=== PATIENT | female | born 1960 | race Caucasian/White ===

== ENCOUNTER 2016-08-18 08:51 | Day surgery (SDC) | payer OTHER ==
[2016-08-15 13:11] VITALS: BMI 25.0
[~2016-08-18 08:51] MED LIST: LEVOFLOXACIN 500 MG PREMIX BAG IVPB ONE
[2016-08-18] MEDS ORDERED: LEVOFLOXACIN 500 MG IVPB 100 ML IVPB ONE (11:08)
[2016-08-18] MEDS ORDERED: oxyCODONE HCL 5 MG TABLET PO PRN (11:12)
[2016-08-18] MEDS ORDERED: PROMETHAZINE HCL 25 MG/1 ML VIAL IVPUSH PRN (11:12)
[2016-08-18] MEDS ORDERED: ONDANSETRON 4 MG/2 ML VIAL IVPUSH PRN (11:12)
[2016-08-18] MEDS ORDERED: LACTATED RINGERS SOLUTION 1,000 ML IV SCH (11:15)
[2016-08-18] MEDS ORDERED: MEROPENEM 1 GM in DEXTROSE 5%-WATER - 250 ML IVPB ONE (12:00)
[2016-08-18] MEDS ORDERED: MIDAZOLAM HCL 2 MG/2 ML SINGLE DOSE VIAL ONE (12:05)
[2016-08-18] MEDS ORDERED: LIDOCAINE HCL/PF 2% SDV 5ML VIAL ONE (12:22)
[2016-08-18] MEDS ORDERED: PROPOFOL 20 ML ONE (12:22)
[2016-08-18] MEDS ORDERED: MEROPENEM 1 GM VIAL (RESTRICTED TO ID) IVPB ONE (12:24)
--- NOTE | 2016-08-18 13:24 | OP ---
Operative Note - Note: Operative Date: 08/18/16 Pre-Operative Diagnosis: right renal stones Operation: right eswl Findings: 20mm mid and 10mm upper right kidney stones Post-Operative Diagnosis: Same as Pre-op Surgeon: Vladimir Ayala Anesthesia: General Operative Report Dictated: Yes
[2016-08-18 13:36] VITALS: TEMP 97.8
[2016-08-18 15:57] VITALS: BP 114/78; PULSE 85
--- NOTE | 2016-08-19 15:28 | OP ---
DATE OF OPERATION: 08/18/2016 PREOPERATIVE DIAGNOSIS: Right renal stone. POSTOPERATIVE DIAGNOSIS: Right renal stone. PROCEDURE: Right extracorporeal shock-wave lithotripsy. ATTENDING: Louis Ryenoso MD ANESTHESIA: General. OPERATION: The patient was brought in the operating room, placed in supine position on the operating room table. The patient was given antibiotics as suggested by infectious disease for surgical prophylaxis. The patient was placed in supine position on the operating table. Ultrasonography and fluoroscopy showed a 2-cm midpole stone and 1-cm upper pole stone. In addition, there was a large lower pole stone which was not involved in today's procedure. The patient's midpole and upper pole stone were subjected to extracorporeal shock-wave lithotripsy. The patient was given general anesthesia and once general anesthesia had been administered, 3000 impulses at 20 joules of power was administered to the mid and upper pole stones, with excellent fragmentation on pre and postoperative observation by fluoroscopy and ultrasonography. The patient tolerated the procedure very well. The disposition of the patient was to recovery room. LOUIS REYNOSO M.D. [id number]
== END 2016-08-18 15:40 | disposition home or self-care (01) ==
LOC: JASU-SURG 08:51
PROVIDERS: ATTEND Urology
PROC: 0TF3XZZ Fragmentation in Right Kidney Pelvis, External Approach (ICD-10-PCS; principal; 2016-08-18 11:00)
DX: N20.0 Calculus of kidney (principal)
CPT/HCPCS: 94760

== ENCOUNTER 2017-12-01 13:17 | Observation (INO) | payer OTHER ==
--- NOTE | 2017-12-01 14:28 | PDOC ---
Rapid Medical Evaluation Chief Complaint: Blood Pressure Problem Time Seen by Provider: 12/01/17 14:21 Medical Evaluation: Allergies Allergy/AdvReac Type Severity Reaction Status Date / Time Penicillins Allergy Verified 12/01/17 13:21 Vital Signs Temp Pulse Resp BP Pulse Ox 98.0 F 72 18 163/108 100 12/01/17 13:23 12/01/17 13:23 12/01/17 13:23 12/01/17 13:23 12/01/17 13:23 12/01/17 14:24 Pt. sent from her [employer] for elevated blood pressure (Dr. Rosenthal). Pt. also c/o R sided back pain, R arm pain and headache Exam: Ambulatory in no acute distress. Breathing easily. CTAB, RRR. BP 169/86 Orders: Labs, EKG, CXR Pt. to proceed to main ed for further evaluation. Discharge Disposition - Referrals Referrals: Dontrell Lassiter MD [Primary Care Provider] - - Patient Instructions - Post Discharge Activity
[2017-12-01 15:24] LABS: BASO % 0.5 % (0-2.0); HEMATOCRIT 41.5 % (32.4-45.2); HEMOGLOBIN 13.6 GM/dL (10.7-15.3); LYMPH % 26.8 % (8-40); MCHC 32.7 g/dl (32.0-36.0); MEAN CELL VOLUME 82.5 fl (80-96); MEAN PLT VOLUME 9.3 fl (7.5-11.1); MONO % 6.4 % (3.8-10.2); NEUT % 65.3 % (42.8-82.8); PLATELET COUNT 210 K/MM3 (134-434); RBC 5.04 M/mm3 (3.60-5.2); RDW 15.8 % (11.6-15.6); WHITE BLOOD COUNT 7.3 K/mm3 (4.0-10.0)
[2017-12-01 15:28] LABS: INR 0.96 (0.82-1.09); PROTHROMBIN TIME (PATIENT) 10.9 SEC (9.7-13.0)
[2017-12-01 15:42] LABS: URINE APPEARANCE CLEAR; URINE BILIRUBIN NEGATIVE (<2.0 mg/dL); URINE COLOR STRAW; URINE GLUCOSE (UA) NEGATIVE (NEGATIVE); URINE KETONE NEGATIVE (NEGATIVE); URINE NITRITE POSITIVE (NEGATIVE); URINE PROTEIN NEGATIVE (NEGATIVE); URINE UROBILINOGEN NEGATIVE mg/dL (0.2-1.0)
[2017-12-01 15:43] LABS: URINE LEUK ESTERASE 3+ (NEGATIVE)
[2017-12-01 15:46] LABS: URINE BACTERIA FEW /hpf (NONE SEEN); URINE MUCUS RARE
[2017-12-01 15:54] LABS: ALBUMIN 4.1 g/dl (3.4-5.0); ANION GAP 7 (8-16); BILIRUBIN,TOTAL 0.4 mg/dL (0.2-1.0); BLOOD UREA NITROGEN 16 mg/dL (7-18); CHLORIDE 108 mmol/L (98-107); CO2 27 mmol/L (21-32); CREATININE 0.8 mg/dL (0.55-1.02); GLUCOSE,RANDOM 85 mg/dL (74-106); POTASSIUM 4.2 mmol/L (3.5-5.1); SGOT/AST 18 U/L (15-37); SGPT/ALT 26 U/L (12-78); SODIUM 142 mmol/L (136-145); TOT PROT 7.8 g/dl (6.4-8.2)
[2017-12-01 15:55] LABS: ALK PHOS 94 U/L (45-117)
--- NOTE | 2017-12-01 16:02 | PDOC ---
History of Present Illness - General Chief Complaint: Blood Pressure Problem Stated Complaint: HEAD PRESSURE Time Seen by Provider: 12/01/17 14:21 - History of Present Illness Initial Comments: 12/01/17 16:33 Ms. Webster is a 57 yo female w/ pmh of HTN who presents from [employer] office after she was noted to be hypertensive in office. Patient further complains of a 3 hour history of 10/10 headache. She reports it was indolent in nature however has progressed across her entire forehead and radiates down her right neck. Denies any other associated symptoms. The patient denies chest pain, shortness of breath, and dizziness. Denies fever , chills, nausea, vomit, diarrhea and constipation. Denies dysuria, frequency, urgency and hematuria. Allergies: Penicillin Past History - Past Medical History Allergies/Adverse Reactions: Allergies Allergy/AdvReac Type Severity Reaction Status Date / Time Penicillins Allergy Verified 12/01/17 13:21 Home Medications: Ambulatory Orders Cephalexin [Keflex] 500 mg PO BID #14 capsule 10/16/17 Ibuprofen 600 mg PO ACDIN #30 tablet 10/16/17 Anemia: No Asthma: No Cancer: No Cardiac Disorders: No COPD: No CHF: No DVT: No Dementia: No Diabetes: Yes (BODERLINE DIABETES) GI Disorders: No Disorders: No HTN: No Hypercholesterolemia: Yes Kidney Stones: Yes Liver Disease: No Seizures: No Thyroid Disease: No - Immunization History Td Vaccination: Yes TDAP Vaccination: Yes Immunization Up to Date: No - Suicide/Smoking/Psychosocial Hx Smoking History: Never smoked Have you smoked in the past 12 months: No Information on smoking cessation initiated: No Hx Alcohol Use: No Drug/Substance Use Hx: No Substance Use Type: None Review of Systems - Review of Systems Comments:: 12/01/17 16:35 GENERAL/CONSTITUTIONAL: No fever or chills. No weakness. HEAD, EYES, EARS, NOSE AND THROAT: No change in vision. No ear pain or discharge. No sore throat. CARDIOVASCULAR: No chest pain or shortness of breath RESPIRATORY: No cough, wheezing, or hemoptysis. GASTROINTESTINAL: No nausea, vomiting, diarrhea or constipation. GENITOURINARY: No dysuria, frequency, or change in urination. MUSCULOSKELETAL: No joint or muscle swelling or pain. No neck or back pain. SKIN: No rash NEUROLOGIC: +Headache as described. No vertigo, loss of consciousness, or change in strength/sensation. ENDOCRINE: No increased thirst. No abnormal weight change HEMATOLOGIC/LYMPHATIC: No anemia, easy bleeding, or history of blood clots. ALLERGIC/IMMUNOLOGIC: No hives or skin allergy. *Physical Exam - Vital Signs Last Vital Signs Temp Pulse Resp BP Pulse Ox 98.0 F 72 18 168/86 100 12/01/17 13:23 12/01/17 13:23 12/01/17 13:23 12/01/17 14:25 12/01/17 13:23 - Physical Exam Comments: 12/01/17 16:35 GENERAL: Awake, alert, and fully oriented, in no acute distress HEAD: No signs of trauma, normocephalic, atraumatic EYES: PERRLA, EOMI, sclera anicteric, conjunctiva clear ENT: Auricles normal inspection, hearing grossly normal, nares patent, oropharynx clear without exudates. Moist mucosa NECK: Normal ROM, supple, no lymphadenopathy, JVD, or masses LUNGS: No distress, speaks full sentences, clear to auscultation bilaterally HEART: Regular rate and rhythm, normal S1 and S2, no murmurs, rubs or gallops, peripheral pulses normal and equal bilaterally. ABDOMEN: Soft, nontender, normoactive bowel sounds. No guarding, no rebound. No masses EXTREMITIES: Normal inspection, Normal range of motion, no edema. No clubbing or cyanosis. NEUROLOGICAL: Cranial nerves II through XII grossly intact. Normal speech, normal gait, no focal sensorimotor deficits SKIN: Warm, Dry, normal turgor, no rashes or lesions noted. ED Treatment Course - LABORATORY CBC & Chemistry Diagram: 12/01/17 15:01 12/01/17 15:01 - ADDITIONAL ORDERS Additional order review: Laboratory Results 12/01/17 12/01/17 12/01/17 15:21 15:01 15:01 PT with INR INR Sodium 142 Potassium 4.2 Chloride 108 H Carbon Dioxide 27 Anion Gap 7 L BUN 16 Creatinine 0.8 Creat Clearance w eGFR > 60 Random Glucose 85 Calcium 9.0 Total Bilirubin 0.4 AST 18 ALT 26 Alkaline Phosphatase 94 Creatine Kinase 101 Troponin I < 0.02 Total Protein 7.8 Albumin 4.1 Urine Color Straw Urine Appearance Clear Urine pH 7.0 Ur Specific [place] 1.009 Urine Protein Negative Urine Glucose (UA) Negative Urine Ketones Negative Urine Blood Negative Urine Nitrite Positive Urine Bilirubin Negative Urine Urobilinogen Negative Ur Leukocyte Esterase 3+ H Urine WBC (Auto) 25 Urine RBC (Auto) 1 Urine Bacteria Few Urine Mucus Rare 12/01/17 15:01 PT with INR 10.90 INR 0.96 Sodium Potassium Chloride Carbon Dioxide Anion Gap BUN Creatinine Creat Clearance w eGFR Random Glucose Calcium Total Bilirubin AST ALT Alkaline Phosphatase Creatine Kinase Troponin I Total Protein Albumin Urine Color Urine Appearance Urine pH Ur Specific [place] Urine Protein Urine Glucose (UA) Urine Ketones Urine Blood Urine Nitrite Urine Bilirubin Urine Urobilinogen Ur Leukocyte Esterase Urine WBC (Auto) Urine RBC (Auto) Urine Bacteria Urine Mucus 12/01/17 15:01 RBC 5.04 MCV 82.5 MCHC 32.7 RDW 15.8 H MPV 9.3 Neutrophils % 65.3 Lymphocytes % 26.8 Monocytes % 6.4 Eosinophils % 1.0 Basophils % 0.5 Medical Decision Making - Medical Decision Making 12/01/17 19:02 Ms. Webster is a 57 yo female w/ pmh as described. Workup started for severe headache with CTA for r/o carotid dissection and head ct for r/o bleed. Patient had severe reaction of hives to IV contrast requiring benadryl. Patient also noted to have multiple hypodensities on head CT. Fluids / reglan given for control of headache. Labs significant for UTI as below - macrobid oral treatment started. Inpatient team paged for admission. 12/01/17 19:33 Patient signed out to Dr. Bardales for further evaluation. Laboratory Results - last 24 hr 12/01/17 12/01/17 12/01/17 15:01 15:01 15:01 WBC 7.3 RBC 5.04 Hgb 13.6 Hct 41.5 MCV 82.5 MCH 27.0 MCHC 32.7 RDW 15.8 H Plt Count 210 MPV 9.3 Neutrophils % 65.3 Lymphocytes % 26.8 Monocytes % 6.4 Eosinophils % 1.0 Basophils % 0.5 Nucleated RBC % 0 PT with INR 10.90 INR 0.96 Sodium 142 Potassium 4.2 Chloride 108 H Carbon Dioxide 27 Anion Gap 7 L BUN 16 Creatinine 0.8 Creat Clearance w eGFR > 60 Random Glucose 85 Calcium 9.0 Total Bilirubin 0.4 AST 18 ALT 26 Alkaline Phosphatase 94 Creatine Kinase Troponin I Total Protein 7.8 Albumin 4.1 Urine Color Urine Appearance Urine pH Ur Specific [place] Urine Protein Urine Glucose (UA) Urine Ketones Urine Blood Urine Nitrite Urine Bilirubin Urine Urobilinogen Ur Leukocyte Esterase Urine WBC (Auto) Urine RBC (Auto) Urine Bacteria Urine Mucus 12/01/17 12/01/17 15:01 15:21 WBC RBC Hgb Hct MCV MCH MCHC RDW Plt Count MPV Neutrophils % Lymphocytes % Monocytes % Eosinophils % Basophils % Nucleated RBC % PT with INR INR Sodium Potassium Chloride Carbon Dioxide Anion Gap BUN Creatinine Creat Clearance w eGFR Random Glucose Calcium Total Bilirubin AST ALT Alkaline Phosphatase Creatine Kinase 101 Troponin I < 0.02 Total Protein Albumin Urine Color Straw Urine Appearance Clear Urine pH 7.0 Ur Specific [place] 1.009 Urine Protein Negative Urine Glucose (UA) Negative Urine Ketones Negative Urine Blood Negative Urine Nitrite Positive Urine Bilirubin Negative Urine Urobilinogen Negative Ur Leukocyte Esterase 3+ H Urine WBC (Auto) 25 Urine RBC (Auto) 1 Urine Bacteria Few Urine Mucus Rare *DC/Admit/Observation/Transfer Diagnosis at time of Disposition: Abnormal head CT Allergic reaction Qualifiers: Encounter type: initial encounter Qualified Code(s): T78.40XA - Allergy, unspecified, initial encounter - Referrals Referrals: Dontrell Lassiter MD [Primary Care Provider] - - Patient Instructions - Post Discharge Activity
--- NOTE | 2017-12-01 16:04 | PDOC ---
Attending Attestation - Resident Resident Name: Mike Tripp - HPI HPI: 12/01/17 17:26 Pt presents to the ED complaining of the acute onset of severe occipital headache. Denies nausea, vomiting or photophobia. Denies headache history. Patient was also hypertensive in her [facility]'s office, which prompted her [facility] AIDE to send her in. - Physicial Exam PE: 12/01/17 17:29 Agree with resident exam. Patient is alert and oriented x 3 and neurologically intact. She appears comfortable. Neck is supple. + point tenderness over the trapezius muscle. - Medical Decision Making 12/01/17 17:33 Pt presents to the ED complaining of severe headache. While this is most likely to be tension headache, subarachnoid remains on the differential. Will check CT head and CT angiogram to rule out subarachnoid hemorrhage. Will give pain control and reassess. 12/01/17 18:[address] angio with administration of Iv contrast, patient developed diffuse urticaria. No facial swelling, no nausea or vomiting, no lightheadness. Will treat with IV benadryl, solumedrol and pepcid and reassess.
[2017-12-01] MEDS ORDERED: METOCLOPRAMIDE HCL INJECTION 10 MG/2 ML VIAL IVPB ONE (16:25)
[2017-12-01] MEDS ORDERED: SODIUM CHLORIDE 1,000 ML IV STA (16:25)
[2017-12-01] MEDS ORDERED: SODIUM CHLORIDE 2,000 ML IV STA (17:09)
[2017-12-01] MEDS ORDERED: METOCLOPRAMIDE HCL INJECTION 10 MG/2 ML VIAL ONE (17:09)
[2017-12-01] MEDS ORDERED: FAMOTIDINE 20 MG/50 ML IVPB 20 MG/50 ML MG IVPB ONE ×2 (18:10→21:48)
[2017-12-01] MEDS ORDERED: methylPREDNISolone NA SUCC 125 MG/2 ML VIAL ONE (18:10)
[2017-12-01] MEDS ORDERED: methylPREDNISolone NA SUCC 125 MG/2 ML VIAL IVPUSH ONE (18:17)
[2017-12-01] MEDS ORDERED: NITROFURANTOIN MACROCRYSTAL 50 MG CAPSULE (FP) PO SCH (19:15)
--- NOTE | 2017-12-01 20:10 | PN ---
Teaching Attending Note Name of Resident: Sandra Garcia ATTENDING PHYSICIAN STATEMENT I saw and evaluated the patient. I reviewed the resident's note and discussed the case with the resident. I agree with the resident's findings and plan as documented. SUBJECTIVE: Patient is a 57 year old woman referred from her [employer]'s office for uncontrolled hypertension associated with acute onset of severe occipital headache. Has PMH of hypertension (not on medication), and kidney stones (prior lithotripsy). Was being evaluated by [employer] for right breast pain and nipple discharge. Denies nausea, vomiting or photophobia. Denies headache history. Following CT angiogram with IV contrast, patient developed diffuse urticaria. No facial swelling, no nausea or vomiting, no lightheadedness. Acutely treated with IV benadryl, solumedrol and pepcid. OBJECTIVE: Vital Signs Period Temp Pulse Resp BP Sys/Luis Pulse Ox Last 24 Hr 98.0 F 72-90 18-18 163-168/86-108 99-100 HEENT: No Jaundice, eye redness or discharge, PERRLA, EOMI. Normocephalic, atraumatic. External ears are normal and hearing is grossly intact. No nasal discharge. Neck: Supple, nontender. No palpable adenopathy or thyromegaly. No JVD Chest: Good effort. Clear to auscultation and percussion. Heart: Regular. No S3, rub or murmur Abdomen: Not distended, soft, nontender and no HSM. No rebound or guarding. Normoactive bowel sounds. Ext: Peripheral pulses intact. No leg edema. Skin: Warm and dry. No petechiae, rash or ecchymosis. Neuro: Alert. Oriented x3. CN 2-12 grossly intact. Sensation grossly intact in all four extremities and DTR are symmetric. Current Medications Generic Name Dose Route Start Last Admin Trade Name Freq PRN Reason Stop Dose Admin Famotidine 20 mg in 12 mls @ 144 mls/hr 12/01/17 22:00 Pepcid 20 Mg/12 Ml Push IVPUSH BID SUYAPA Nitrofurantoin Macrocrystals 100 mg 12/01/17 19:15 Macrodantin - PO ONCE SUYAPA Home Medications Medication Instructions Recorded Cephalexin [Keflex] 500 mg PO BID #14 capsule 10/16/17 Ibuprofen 600 mg PO ACDIN #30 tablet 10/16/17 Abnormal Lab Results 12/01/17 12/01/17 12/01/17 15:01 15:01 15:21 RDW 15.8 H Chloride 108 H Anion Gap 7 L Ur Leukocyte Esterase 3+ H ASSESSMENT AND PLAN: 1. Uncontrolled hypertension - Being started on amlodipine and HCTZ 12.5 mg daily. Low salt diet counseled. 2. Headache - CT scan showed two right cerebral and one right cerebellar hypodense lesions suspected to be infarcts of unclear age. Will get MRI of her brain. 3. UTI - Will treat with nitrofurantoin 100 mg po bid. 4. Abnormal EKG - has Twave inversion in V3 to V6 with normal troponin. Will repeat both EKG and troponin to rule out ACS. 5. Allergy to contrast dye - Monitor closely and continue Benadryl and solumedrol for at least 24 hours. 6. DVT prophylaxis - Heparin 5000u sq tid 7. Advance directives - Full code
--- NOTE | 2017-12-01 20:49 | PDOC ---
*Physical Exam - Vital Signs Last Vital Signs Temp Pulse Resp BP Pulse Ox 98.0 F 90 18 145/101 99 12/01/17 13:23 12/01/17 18:53 12/01/17 18:53 12/01/17 17:15 12/01/17 18:53 ED Treatment Course - LABORATORY CBC & Chemistry Diagram: 12/01/17 15:01 12/01/17 15:01 - ADDITIONAL ORDERS Additional order review: Laboratory Results 12/01/17 12/01/17 12/01/17 15:21 15:01 15:01 PT with INR INR Sodium 142 Potassium 4.2 Chloride 108 H Carbon Dioxide 27 Anion Gap 7 L BUN 16 Creatinine 0.8 Creat Clearance w eGFR > 60 Random Glucose 85 Calcium 9.0 Total Bilirubin 0.4 AST 18 ALT 26 Alkaline Phosphatase 94 Creatine Kinase 101 Troponin I < 0.02 Total Protein 7.8 Albumin 4.1 Urine Color Straw Urine Appearance Clear Urine pH 7.0 Ur Specific [place] 1.009 Urine Protein Negative Urine Glucose (UA) Negative Urine Ketones Negative Urine Blood Negative Urine Nitrite Positive Urine Bilirubin Negative Urine Urobilinogen Negative Ur Leukocyte Esterase 3+ H Urine WBC (Auto) 25 Urine RBC (Auto) 1 Urine Bacteria Few Urine Mucus Rare 12/01/17 15:01 PT with INR 10.90 INR 0.96 Sodium Potassium Chloride Carbon Dioxide Anion Gap BUN Creatinine Creat Clearance w eGFR Random Glucose Calcium Total Bilirubin AST ALT Alkaline Phosphatase Creatine Kinase Troponin I Total Protein Albumin Urine Color Urine Appearance Urine pH Ur Specific [place] Urine Protein Urine Glucose (UA) Urine Ketones Urine Blood Urine Nitrite Urine Bilirubin Urine Urobilinogen Ur Leukocyte Esterase Urine WBC (Auto) Urine RBC (Auto) Urine Bacteria Urine Mucus 12/01/17 15:01 RBC 5.04 MCV 82.5 MCHC 32.7 RDW 15.8 H MPV 9.3 Neutrophils % 65.3 Lymphocytes % 26.8 Monocytes % 6.4 Eosinophils % 1.0 Basophils % 0.5 - Medications Given in the ED: ED Medications Discontinued Medications Generic Name Dose Route Start Last Admin Trade Name Freq PRN Reason Stop Dose Admin Diphenhydramine HCl 50 mg 12/01/17 18:17 12/01/17 18:32 Benadryl Injection - IVPUSH 12/01/17 18:18 50 mg ONCE ONE Administration Sodium Chloride 1,000 mls @ 1,000 mls/hr 12/01/17 16:25 12/01/17 17:00 Normal Saline - IV 12/01/17 17:24 1,000 mls/hr ASDIR STA Administration Sodium Chloride 2,000 mls @ 1,000 mls/hr 12/01/17 17:09 12/01/17 18:17 Normal Saline - IV 12/01/17 19:08 1,000 mls/hr ASDIR STA Administration Methylprednisolone Sodium Succinate 125 mg 12/01/17 18:17 12/01/17 18:32 Solu-Medrol - IVPUSH 12/01/17 18:18 125 mg ONCE ONE Administration Metoclopramide HCl 10 mg 12/01/17 16:25 12/01/17 17:00 Reglan Injection - IVPB 12/01/17 16:26 10 mg ONCE ONE Administration Medical Decision Making - Medical Decision Making 12/01/17 20:48 Admitted to m/s obs via Dr Garcia to Dr Romero. *DC/Admit/Observation/Transfer Diagnosis at time of Disposition: Abnormal head CT Allergic reaction Qualifiers: Encounter type: initial encounter Qualified Code(s): T78.40XA - Allergy, unspecified, initial encounter - Discharge Dispostion Decision to Admit order: Yes Decision to Admit order Date/Time: Decision to Admit Order Category Date Time Status Decision to Admit to Hospital Routine Admission 12/01/17 20:47 Active - Referrals Referrals: Dontrell Lassiter MD [Primary Care Provider] - - Patient Instructions - Post Discharge Activity
[2017-12-01] MEDS ORDERED: ACETAMINOPHEN 325 MG TABLET (FP) PO PRN (21:23)
[2017-12-01] MEDS ORDERED: ONDANSETRON 4 MG/2 ML VIAL IVPUSH PRN (21:23)
[2017-12-01] MEDS ORDERED: NITROFURANTOIN MACROCRYSTAL 50 MG CAPSULE (FP) ONE (21:48)
[2017-12-01] MEDS: FAMOTIDINE 20 MG/50 ML IVPB 20 MG/50 ML MG IVPB SCH (21:54)
[2017-12-01] MEDS ORDERED: FAMOTIDINE IV 20 MG/12 ML VIAL IVPUSH SCH (22:00)
[2017-12-02] MEDS ORDERED: NITROFURANTOIN MACROCRYSTAL 50 MG CAPSULE (FP) PO SCH
--- NOTE | 2017-12-02 00:19 | HP ---
CHIEF COMPLAINT: HTN and PRATT, sent by USER EXPERIENCE ANALYST office PCP: Dr. Lassiter OB-PE ELECTRICAL ENGINEER: Dr. Burr/Dr. Rosenthal HISTORY OF PRESENT ILLNESS: 57yo woman with PMH of HTN (no on medication) and nephrolithiasis (s/p ESWL 2016 ) who was sent by USER EXPERIENCE ANALYST office due to elevated BP (value unknown) and gradual onset occipital PRATT. Patient was being evaluated by USER EXPERIENCE ANALYST for R breath pain and dark greenish nipple discharge x 3days. On arrival to ED, patient complained of worsening occipital PRATT for past several hours with severity 10/10 and pain radiating down her neck. After undergoing CT Head and Neck angiogram, patient developed diffuse urticaria and was treated with Benadryl, Solumedrol 125mg, and Pepcid. No swelling of face, lips, or oropharynx noted. No nausea, vomiting , abdominal pain, or diarrhea following contrast exposure. Patient denies any chest pain, palpitations, or sob. No dysuria, hematuria, urinary frequency or urgency. No changes in vision, focal weakness, unsteady gait, or falls. ED course was notable for: (1) IV contrast dye allergic reaction s/p Benadryl/Steroids/Pepcid with improvement in urticaria (2) Head CT notable for 2x hypodense foci in R cerebral hemisphere and 1x hypodense foci in R cerebellum (3) Recent Travel: none PAST MEDICAL HISTORY: see HPI PAST SURGICAL HISTORY: Right ESWL of 20mm mid and 10mm upper right kidney stones, 08/18/16 Social History: lives with daughter, unlimited exercise tolerance Smoking: never Alcohol: none Drugs: none Family History: non-contributory Allergies: Penicillins Allergy (Verified 12/01/17 13:21) HOME MEDICATIONS: None REVIEW OF SYSTEMS GYNECOLOGICAL: + R breast pain and nipple discharge CONSTITUTIONAL: Absent: fever, chills, diaphoresis, generalized weakness, malaise, loss of appetite, weight change HEENT: Absent: rhinorrhea, nasal congestion, throat pain, throat swelling, difficulty swallowing, mouth swelling, ear pain, eye pain, visual changes CARDIOVASCULAR: Absent: chest pain, syncope, palpitations, irregular heart rate, lightheadedness , peripheral edema RESPIRATORY: Absent: cough, shortness of breath, dyspnea with exertion, orthopnea, wheezing, stridor, hemoptysis GASTROINTESTINAL: Absent: abdominal pain, abdominal distension, nausea, vomiting, diarrhea, constipation, melena, hematochezia GENITOURINARY: Absent: dysuria, frequency, urgency, hesitancy, hematuria, flank pain, genital pain MUSCULOSKELETAL: +neck pain Absent: myalgia, arthralgia, joint swelling, back pain, SKIN: +itching Absent: rash, pallor HEMATOLOGIC/IMMUNOLOGIC: Absent: easy bleeding, easy bruising, lymphadenopathy, frequent infections ENDOCRINE: Absent: unexplained weight gain, unexplained weight loss, heat intolerance, cold intolerance NEUROLOGIC: +headache, dizziness Absent: focal weakness or paresthesias, , unsteady gait, seizure, mental status changes, bladder or bowel incontinence PSYCHIATRIC: Absent: anxiety, depression, suicidal or homicidal ideation, hallucinations. PHYSICAL EXAMINATION Vital Signs - 24 hr 12/01/17 12/01/17 12/01/17 13:23 14:25 17:15 Temperature 98.0 F Pulse Rate 72 Pulse Rate [ 72 Apical] Respiratory 18 19 Rate Blood Pressure 163/108 Blood Pressure 145/101 [Left Arm] Blood Pressure 168/86 [Right Arm] O2 Sat by Pulse 100 99 Oximetry (%) 12/01/17 12/01/17 18:53 21:55 Temperature Pulse Rate Pulse Rate [ 90 77 Apical] Respiratory 18 20 Rate Blood Pressure Blood Pressure 141/89 [Left Arm] Blood Pressure [Right Arm] O2 Sat by Pulse 99 99 Oximetry (%) GENERAL: aaox3, nad HEENT: no facial swelling, PERRL, EOMI, sclera anicteric, conjunctiva clear, oropharynx clear without exudates, +uvula midline w/o swelling, mmm NECK: supple, no nuchal rigidity LUNGS: CTAB HEART: rrr, normal s1/s2, no m/r/g ABDOMEN: Soft, NTND, +bowel sounds, +suprapubic ttp MUSCULOSKELETAL: Normal range of motion at all joints LOWER EXTREMITIES: 2+ DP pulses, wwp, no calf tenderness, edema NEUROLOGICAL: Cranial nerves II-XII intact. Normal speech. motor strength 5/5 in 4 extremities; distal sensation intact, no dysmetria oon [id number], no appendicular ataxia on heel-puri test PSYCHIATRIC: Cooperative. Good eye contact. Appropriate mood and affect. SKIN: Warm, dry, normal turgor, no hives noted on physical exam CBC, BMP 12/01/17 15:01 12/01/17 15:01 Hepatic Panel Total Bilirubin 0.4 mg/dL (0.2-1.0) 12/01/17 15:01 AST 18 U/L (15-37) 12/01/17 15:01 ALT 26 U/L (12-78) 12/01/17 15:01 Alkaline Phosphatase 94 U/L (45-117) 12/01/17 15:01 Albumin 4.1 g/dl (3.4-5.0) 12/01/17 15:01 Troponin, BNP 12/01/17 15:01 Troponin I < 0.02 INR, PTT INR 0.96 (0.82-1.09) 12/01/17 15:01 Urine Test Results Urine Color Straw 12/01/17 15:21 Urine Appearance Clear 12/01/17 15:21 Urine pH 7.0 (5.0-8.0) 12/01/17 15:21 Ur Specific Webster 1.009 (1.001-1.035) 12/01/17 15:21 Urine Protein Negative (NEGATIVE) 12/01/17 15:21 Urine Glucose (UA) Negative (NEGATIVE) 12/01/17 15:21 Urine Ketones Negative (NEGATIVE) 12/01/17 15:21 Urine Blood Negative (NEGATIVE) 12/01/17 15:21 Urine Nitrite Positive (NEGATIVE) 12/01/17 15:21 Urine Bilirubin Negative (<2.0 mg/dL) 12/01/17 15:21 Ur Leukocyte Esterase 3+ (NEGATIVE) H 12/01/17 15:21 Urine Bacteria Few /hpf (NONE SEEN) 12/01/17 15:21 Urine Mucus Rare 12/01/17 15:21 EKG: NSR, rate 89, TWI V3-V6, QTc 459 (no prior to compare) ASSESSMENT/PLAN: 57yo woman with PMH of uncontrolled HTN (not on medication) and nephrolithiasis s/p lithotripsy who presents from OB/GYB office with HTN and PRATT who was found to have hypodense foci on Head CT c/b allergic reaction to IV contrast as well UTI. #R hypodense foci, suspicious for prior infarct, no focal neurological findings on exam -Neurology consulted (Dr. Cleaning) -Brain MRI w/o contrast #IV contrast dye allergic reaction, symptoms nearly resolved after initial treatment in ED -continue Bendadryl 50mg IV QD and Solumedrol 40mg IV Q8H #abnormal EKG, no prior to compare, low suspicion for ACS given asymptomatic and 1st Trop negative, but will monitor to r/o -Repeat EKG to assess if TWI are fixed -Serial Tropoins #HTN - start amlodipine 5mg qd and HCTZ 12.5mg qd #symptomatic uncomplicated UTI, UA: 3+LE with pyuria, +Suprapubic ttp -Treat Nitrofurantoin 50mg Q6H -Lactobacillus 1 tablet daily -F/U urine culture #R breast pain/nipple discharge - pt to f/u with breast surgeon as OP #FEN PO intake lytes wnl Na controlled diet #PPX - HSQ Q8H #DISPO: m/s observation FULL code d/w Dr. Stacy Visit type - Emergency Visit Emergency Visit: Yes ED Registration Date: 12/01/17 Care time: The patient presented to the Emergency Department on the above date and was hospitalized for further evaluation of their emergent condition. - New Patient This patient is new to me today: Yes Date on this admission: 12/02/17 - Critical Care Critical Care patient: No Hospitalist Screening - Colonoscopy Questionnaire Colonoscopy Questionnaire: Colonoscopy Questionnaire - Patient: 50 - 75 years old and never had a screening colonoscopy: Unknown History of colon or rectal polyps, or CA: Unknown History of IBD, Crohn's disease or UC: Unknown History of abdominal radiation therapy as a child: Unknown - Relative: 1 with colon or rectal CA, or polyps at age 60 or younger: Unknown Colon or rectal CA diagnosed at age 45 or younger: Unknown Multiple relatives with colon or rectal CA: Unknown - Outcome: Screening Result: Negative Screen
[2017-12-02] MEDS: NITROFURANTOIN MACROCRYSTAL 50 MG CAPSULE (FP) PO SCH ×4 (02:09→18:36)
[2017-12-02] MEDS: HEPARIN NA (PORCINE) 5,000 UNITS/ML 1ML VIAL SQ SCH ×4 (02:09→22:59)
[2017-12-02] MEDS: methylPREDNISolone NA SUCC 40 MG/1 ML VIAL IVPUSH SCH ×3 (02:09→18:35)
[2017-12-02 08:29] LABS: BASO % 0.1 % (0-2.0); HEMATOCRIT 41.3 % (32.4-45.2); HEMOGLOBIN 13.9 GM/dL (10.7-15.3); LYMPH % 10.5 % (8-40); MCH 27.7 pg (25.7-33.7); MCHC 33.6 g/dl (32.0-36.0); MEAN CELL VOLUME 82.4 fl (80-96); MEAN PLT VOLUME 9.3 fl (7.5-11.1); MONO % 0.5 % (3.8-10.2); NEUT % 88.9 % (42.8-82.8); PLATELET COUNT 213 K/MM3 (134-434); RBC 5.01 M/mm3 (3.60-5.2); RDW 15.8 % (11.6-15.6); WHITE BLOOD COUNT 8.9 K/mm3 (4.0-10.0)
[2017-12-02 09:13] LABS: CHLORIDE 111 mmol/L (98-107); POTASSIUM 3.8 mmol/L (3.5-5.1); SODIUM 144 mmol/L (136-145)
--- NOTE | 2017-12-02 09:48 | EKG ---
Test Reason : Blood Pressure : / mmHG Vent. Rate : 089 BPM Atrial Rate : 089 BPM P-R Int : 148 ms QRS Dur : 080 ms QT Int : 378 ms P-R-T Axes : 042 -17 003 degrees QTc Int : 459 ms NORMAL SINUS RHYTHM ABNORMAL ECG NO PREVIOUS ECGS AVAILABLE Confirmed by CHASE ABDULLAHI, KAYLEE ([id number]) on 12/02/2017 9:48:16 AM Referred By: Confirmed By:KAYLEE STONE MD
[2017-12-02] MEDS: HYDROCHLOROTHIAZIDE 12.5 MG CAPSULE (FP) PO SCH (09:56)
[2017-12-02] MEDS: LACTOBACILLUS ACIDOPHILUS 1 TABLET PO SCH (09:56)
[2017-12-02] MEDS: amLODIPine BESYLATE 5 MG TABLET (FP) PO SCH (09:56)
[2017-12-02] MEDS: FAMOTIDINE 20 MG/50 ML IVPB 20 MG/50 ML MG IVPB SCH ×2 (09:59→22:59)
[2017-12-02 10:00] LABS: ALBUMIN 3.7 g/dl (3.4-5.0); ALK PHOS 95 U/L (45-117); ANION GAP 10 (8-16); BILIRUBIN,TOTAL 0.4 mg/dL (0.2-1.0); BLOOD UREA NITROGEN 16 mg/dL (7-18); CALCIUM 8.6 mg/dL (8.5-10.1); CO2 23 mmol/L (21-32); CREATININE 0.8 mg/dL (0.55-1.02); GLUCOSE,RANDOM 125 mg/dL (74-106); SGOT/AST 20 U/L (15-37); SGPT/ALT 23 U/L (12-78); TOT PROT 7.4 g/dl (6.4-8.2)
--- NOTE | 2017-12-02 13:29 | PN ---
Progress Note (short form) - Note Progress Note: Subjective: The patient was seen and examined at the bedside, she was also seen ambulating. She has no complaints at this time. Current Medications Generic Name Dose Route Start Last Admin Trade Name Freq PRN Reason Stop Dose Admin Acetaminophen 650 mg 12/01/17 21:23 Tylenol - PO Q4H PRN PAIN LEVEL 1-5 Amlodipine Besylate 5 mg 12/02/17 10:00 12/02/17 09:56 Norvasc - PO 5 mg DAILY SUYAPA Administration Heparin Sodium (Porcine) 5,000 unit 12/02/17 00:00 12/02/17 06:28 Heparin - SQ 5,000 unit TID SUYAPA Administration Hydrochlorothiazide 12.5 mg 12/02/17 10:00 12/02/17 09:56 Hctz - PO 12.5 mg DAILY SUYAPA Administration Famotidine/Sodium Chloride 20 mg in 50 mls @ 100 mls/hr 12/01/17 22:00 09:59 Pepcid 20 Mg Premixed Ivpb - IVPB Not Given BID SUYAPA Lactobacillus Acidophilus 1 tab 12/02/17 10:00 12/02/17 09:56 Bacid - PO 1 tab DAILY SUYAPA Administration Methylprednisolone Sodium Succinate 40 mg 12/02/17 02:00 12/02/17 09:58 Solu-Medrol - IVPUSH 40 mg Q8H-IV SUYAPA Administration Nitrofurantoin Macrocrystals 50 mg 12/02/17 00:00 12/02/17 06:28 Macrodantin - PO 50 mg Q6HPO SUYAPA Administration Ondansetron HCl 4 mg 12/01/17 21:23 Zofran Injection IVPUSH Q6H PRN NAUSEA Objective: Vital Signs Period Temp Pulse Resp BP Sys/Luis Pulse Ox Last 24 Hr 98.1 F-98.2 F 67-90 16-20 110-161/74-103 98-99 Physical Exam: Patient refused CBCD WBC 8.9 K/mm3 (4.0-10.0) 12/02/17 06:31 RBC 5.01 M/mm3 (3.60-5.2) 12/02/17 06:31 Hgb 13.9 GM/dL (10.7-15.3) 12/02/17 06:31 Hct 41.3 % (32.4-45.2) 12/02/17 06:31 MCV 82.4 fl (80-96) 12/02/17 06:31 MCHC 33.6 g/dl (32.0-36.0) 12/02/17 06:31 RDW 15.8 % (11.6-15.6) H 12/02/17 06:31 Plt Count 213 K/MM3 (134-434) 12/02/17 06:31 MPV 9.3 fl (7.5-11.1) 12/02/17 06:31 CMP Sodium 144 mmol/L (136-145) 12/02/17 06:31 Potassium 3.8 mmol/L (3.5-5.1) 12/02/17 06:31 Chloride 111 mmol/L (98-107) H 12/02/17 06:31 Carbon Dioxide 23 mmol/L (21-32) 12/02/17 06:31 Anion Gap 10 (8-16) 12/02/17 06:31 BUN 16 mg/dL (7-18) 12/02/17 06:31 Creatinine 0.8 mg/dL (0.55-1.02) 12/02/17 06:31 Creat Clearance w eGFR > 60 (>60) 12/02/17 06:31 Random Glucose 125 mg/dL (74-106) H 12/02/17 06:31 Calcium 8.6 mg/dL (8.5-10.1) 12/02/17 06:31 Total Bilirubin 0.4 mg/dL (0.2-1.0) 12/02/17 06:31 AST 20 U/L (15-37) 12/02/17 06:31 ALT 23 U/L (12-78) 12/02/17 06:31 Alkaline Phosphatase 95 U/L (45-117) 12/02/17 06:31 Total Protein 7.4 g/dl (6.4-8.2) 12/02/17 06:31 Albumin 3.7 g/dl (3.4-5.0) 12/02/17 06:31 CARDIAC ENZYMES Creatine Kinase 81 IU/L (26-192) 12/02/17 06:31 Troponin I < 0.02 ng/ml (0.00-0.05) 12/02/17 06:31 Assessment: Visit type - Emergency Visit Emergency Visit: Yes ED Registration Date: 12/01/17 Care time: The patient presented to the Emergency Department on the above date and was hospitalized for further evaluation of their emergent condition. - New Patient This patient is new to me today: No - Critical Care Critical Care patient: No
[2017-12-02 13:54] VITALS: BMI 28.0
[2017-12-02] MEDS ORDERED: PT OWN MED DRAWER 7, Y5N ONE (18:17)
--- NOTE | 2017-12-02 18:58 | CONSULT ---
Consult - text type - Consultation Consultation Note: NEUROLOGY CONSULTATION is greatly appreciated: This 57 yo RH woman with h/o HTN and recurrent UTI's - on amloipine, famotidine , HCTZ and macrodantin was referred for admission by her Data Virtualization Consultant after 4 days of headaches and BP of 163/108. The headache was a bifrontal pressing headache "behind the eyes" with photophobia and nausea. Patient acknowledges similar, albeit briefer, Headaches a few times/year when it is "too hot." Given solumedrol yesterday with good result. Also c/o diffuse right arm pain, worse at night. 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 CT Angio of neck- normal Urine WBC= 25 KYREE: No evidence of head trauma. Cor-reg. Neck supple. NEURO: MS/speech: Normal Motor: No drift or tremor. Normal strength, tone, bulk, and reflexes. Toes downgoing. Coord: No FTN dystaxia Sensory: Normal Gait: Normal IMP: Normal neurological exam. No evidence of right cerebellar dysfunction. Doubt headache is due to BP of 160/100, rather, I suspect this is a migraine headache induced by infection/ UTI SUGEST: D/C medrol Culture and Rx for UTI. Add a Beta-nahid (ie: Nadolol 40 mg/d) for BP and migraine prophylaxis. Check cholesterol, lipoprotein profile. ASA (81 mg/day). Thank you very much, Zi Craft MD
[2017-12-03] MEDS: NITROFURANTOIN MACROCRYSTAL 50 MG CAPSULE (FP) PO SCH ×3 (01:11→12:39)
[2017-12-03] MEDS: methylPREDNISolone NA SUCC 40 MG/1 ML VIAL IVPUSH SCH (02:51)
[2017-12-03] MEDS: HEPARIN NA (PORCINE) 5,000 UNITS/ML 1ML VIAL SQ SCH (06:14)
[2017-12-03] MEDS ORDERED: PT OWN MED DRAWER 7, Y5N ONE (09:15)
[2017-12-03] MEDS: amLODIPine BESYLATE 5 MG TABLET (FP) PO SCH (09:32)
[2017-12-03] MEDS: LACTOBACILLUS ACIDOPHILUS 1 TABLET PO SCH (09:32)
[2017-12-03] MEDS: HYDROCHLOROTHIAZIDE 12.5 MG CAPSULE (FP) PO SCH (09:32)
[2017-12-03] MEDS: FAMOTIDINE 20 MG/50 ML IVPB 20 MG/50 ML MG IVPB SCH (09:33)
[2017-12-03] MEDS ORDERED: NADOLOL 40 MG TABLET (FP) PO SCH (11:00)
[2017-12-03] MEDS ORDERED: ASPIRIN 81 MG CHEWABLE TABLETS PO SCH (14:15)
[2017-12-03 14:27] VITALS: BP 136/79; PULSE 77; TEMP 97.9
--- NOTE | 2017-12-03 14:28 | DS ---
Physical Examination Vital Signs: Vital Signs Temperature 97.9 F 12/03/17 14:26 Pulse Rate 77 12/03/17 14:26 Respiratory Rate 20 12/03/17 14:26 Blood Pressure 136/79 12/03/17 14:26 O2 Sat by Pulse Oximetry (%) 99 12/03/17 05:00 Labs: CBC, BMP 12/02/17 06:31 12/02/17 06:31 Discharge Summary Reason For Visit: ALLERGIC REACTION Current Active Problems Abnormal head CT (Acute) Allergic reaction (Acute) - Instructions Diet, Activity, Other Instructions: Please return to the ED with new, persistent, or worsening symptoms. Please follow-up with providers as indicated. Continue taking your antibiotics as prescribed. Referrals: Dontrell Lassiter MD [Primary Care Provider] - (Please follow-up with your primary care provider within 2-3 days. You will need to get a referral for a mammogram to assess your right breast pain and nipple discharge. ) Zi Craft MD [Staff Physician] - (Please follow-up with neurology within 2 -3 days. ) - Home Medications Comprehensive Discharge Medication List: Ambulatory Orders Ibuprofen 600 mg PO ACDIN #30 tablet 10/16/17 Acetaminophen [Tylenol .Regular Strength -] 650 mg PO Q4H PRN tablet 12/03/17 Aspirin [ASA -] 81 mg PO DAILY #30 tab.chew 12/03/17 Atorvastatin Ca [Lipitor] 20 mg PO HS #30 tablet 12/03/17 Hydrochlorothiazide [Hctz -] 12.5 mg PO DAILY #30 cap 12/03/17 Lactobacillus Acidophilus [Bacid -] 1 tab PO DAILY #30 tab 12/03/17 Nadolol [Corgard -] 40 mg PO DAILY #30 tablet 12/03/17 Nitrofurantoin Monohyd/M-Cryst [Macrobid -] 100 mg PO BID #11 capsule 12/03/17
[2017-12-03 15:03] LABS: CHOLESTEROL 217 mg/dL (50-200); HDL CHOLESTEROL 76 mg/dL (40-60); TRIGLYCERIDES 58 mg/dL (35-160)
[2017-12-03] MEDS ORDERED: ATORVASTATIN CA 20 MG TABLET (FP) PO SCH (22:00)
== END 2017-12-03 15:54 | disposition home or self-care (01) ==
LOC: JER 13:17 → JERBED 20:47 → J7W 12-02 13:05
PROVIDERS: ADMIT Internal Medicine; ATTEND Registered Nurse
PROC: 3E0333Z Introduction of Anti-inflammatory into Peripheral Vein, Percutaneous Approach (ICD-10-PCS; principal; 2017-12-01)
PROC: 3E033GC Introduction of Other Therapeutic Substance into Peripheral Vein, Percutaneous Approach (ICD-10-PCS; 2017-12-01)
PROC: 3E0337Z Introduction of Electrolytic and Water Balance Substance into Peripheral Vein, Percutaneous Approach (ICD-10-PCS; 2017-12-01)
PROC: 3E013GC Introduction of Other Therapeutic Substance into Subcutaneous Tissue, Percutaneous Approach (ICD-10-PCS; 2017-12-01)
DX: R93.0 Abnormal findings on diagnostic imaging of skull and head, not elsewhere classified (principal); L50.0 Allergic urticaria; T50.8X5A Adverse effect of diagnostic agents, initial encounter; Y92.238 Other place in hospital as the place of occurrence of the external cause; R73.03 Prediabetes; E78.5 Hyperlipidemia, unspecified; Z88.0 Allergy status to penicillin; R51 Headache; R94.31 Abnormal electrocardiogram [ECG] [EKG]; Z87.440 Personal history of urinary (tract) infections
CPT/HCPCS: 36415; 70450-TC; 70498-TC; 70551-TC; 71046-TC-FY; 80053; 80061; 81003; 81015; 82550; 82962; 83721; 84484; 85025; 85610; 87086; 87186; 93005; 93010; 96361; 96372; 96374; 96375; 96376; 99285-25; G0378; J1644; J7030